=== PATIENT | male | born 1965 | race Caucasian/White ===

== ENCOUNTER 2017-08-18 15:10 | Day surgery (SDC) | payer BC ==
[~2017-08-18] VITALS: Ht 180.3 cm; Wt 91.6 kg
[2017-08-18] VITALS (8 sets, daily range): BP systolic 108–128; BP diastolic 70–103; PULSE 79–144; TEMP 98
[2017-08-18 15:59] LABS: INR 1.1 (0.8-3.0); PROTHROMBIN TIME 12.2 SECONDS (9.7-12.8)
[2017-08-18 16:14] LABS: POTASSIUM 4.3 mmol/L (3.4-5.0)
[2017-08-18 16:45] LABS: THYROID STIMULATING HORMONE 3.21 uIU/mL (0.465-4.680)
== END 2017-08-18 19:31 | disposition home or self-care (01) ==
LOC: COL.CARD 15:10
PROVIDERS: Internal Medicine Interventional Cardiology
DX: I48.3 Typical atrial flutter (principal); R06.02 Shortness of breath; C61 Malignant neoplasm of prostate; E03.9 Hypothyroidism, unspecified; Z80.9 Family history of malignant neoplasm, unspecified
CPT/HCPCS: G9654; J0282; J7030

== ENCOUNTER 2018-07-25 15:18 | Emergency (ER) | payer BC ==
[~2018-07-25] VITALS: Ht 180.3 cm; Wt 86.4 kg
[2018-07-25 15:57] LABS: BASO # 0.1 (0.0-0.2); BASO % 0.7 % (0.0-2.0); EOS # 0.2 (0.0-0.7); EOS % 2.3 % (0-4.0); GRAN # 4.9 (1.4-6.5); GRAN % 55.9 % (42.2-75.2); HEMATOCRIT 48.8 % (42.0-52.0); HEMOGLOBIN 16.8 g/dl (13.5-18.0); LYMPH # 2.7 (1.2-3.4); LYMPH % 30.5 % (20.0-51.0); MEAN CELL VOLUME 86 fl (80.0-100.0); MEAN CORPUSCULAR HEMOGLOBIN 30 pg (27.0-31.0); MEAN CORPUSCULAR HGB CONC 34 g/dl (33.0-37.0); MEAN PLATELET VOLUME 9.5 fl (7.4-10.4); MONO # 0.9 (0.1-0.6); PLATELET COUNT 326 K/mm3 (130-400); RED BLOOD COUNT 5.66 M/mm3 (4.20-5.60); REDCELL DISTRIBUTION WIDTH-CV 13.3 % (11.5-14.5)
[2018-07-25] MEDS ORDERED: LIPITOR20 MG PO (16:00)
[2018-07-25] MEDS ORDERED: SYNTHROID0.088 MG/T PO (16:00)
[2018-07-25] MEDS ORDERED: SYNTHROID0.075 MG/T PO (16:06)
[2018-07-25] MEDS ORDERED: LIPITOR 10MG10 MG PO (16:07)
[2018-07-25 16:10] LABS: ALANINE AMINOTRANSFERASE 58 U/L (21-72); ALBUMIN 4.7 gm/dL (3.5-5.0); ALKALINE PHOSPHATASE 110 U/L (50-136); ANION GAP 11 mmol/L (7-16); AST,SGOT 36 U/L (15-37); BILIRUBIN,TOTAL 0.8 mg/dL (0.0-1.0); BLOOD UREA NITROGEN 25 mg/dL (9-20); CALCIUM 9.7 mg/dL (8.4-10.2); CARBON DIOXIDE 25 mmol/L (22-30); CHLORIDE 104 mmol/L (98-107); CREATININE, serum 1.13 mg/dL (0.66-1.25); GLUCOSE 109 mg/dL (74-106); POTASSIUM 3.9 mmol/L (3.4-5.0); SODIUM 140 mmol/L (137-145); TOTAL PROTEIN 8.6 gm/dL (6.4-8.2)
[2018-07-25 16:24] LABS: TROPONIN-I < 0.012 ng/mL (0.000-0.035)
[2018-07-25] MEDS ORDERED: TOPROL XL 25MG25 MG PO (16:44)
[2018-07-25 16:45] VITALS: BP 115/91; PULSE 90
== END 2018-07-25 17:05 | disposition home or self-care (01) ==
LOC: COL.ER 15:18
PROVIDERS: Emergency Medicine
DX: I47.1 Supraventricular tachycardia (principal); E78.5 Hyperlipidemia, unspecified; E03.9 Hypothyroidism, unspecified; Z90.89 Acquired absence of other organs
CPT/HCPCS: J0153

== ENCOUNTER 2022-01-14 10:37 | Emergency (ER) | payer BC ==
[~2022-01-14] VITALS: Ht 180.3 cm; Wt 90.9 kg
[~2022-01-14 10:37] MED LIST: LIPITOR 10MG10 MG PO; LIPITOR20 MG PO; SYNTHROID0.075 MG/T PO; SYNTHROID0.088 MG/T PO; TOPROL XL 25MG25 MG PO
[2022-01-14 11:25] VITALS: TEMP 97.7
[2022-01-14 11:46] LABS: COLLECTION METHOD CATHETER
[2022-01-14 11:55] LABS: MUCOUS Present (NOT PRESENT); SQUAMOUS EPITHELIAL None Seen /hpf (0-10); URINE BACTERIA None Seen /hpf (NONE SEEN)
[2022-01-14 11:57] LABS: PH 5.5 (5.0-8.5); URINE APPEARANCE Clear (CLEAR/HAZY); URINE BLOOD TRACE-INTACT (NEGATIVE); URINE COLOR Yellow (YELLOW); URINE GLUCOSE Negative (NEGATIVE); URINE KETONE Negative (NEGATIVE); URINE PROTEIN(semi-quant) Negative (NEGATIVE); URINE UROBILINOGEN 0.2 E.U/dL (0.2-1.0)
[2022-01-14 11:58] LABS: URINE NITRATE Negative (NEGATIVE)
[2022-01-14 12:17] LABS: BASO # 0.1 K/mm3 (0.0-0.2); BASO % 0.6 % (0.0-2.0); EOS # 0.1 K/mm3 (0.0-0.7); EOS % 0.6 % (0.0-4.0); GRAN # 6.5 K/mm3 (1.4-6.5); GRAN % 80.2 % (42.2-75.2); HEMATOCRIT 43.2 % (42.0-52.0); HEMOGLOBIN 15.1 g/dl (13.5-18.0); LYMPH % 11.8 % (20.0-51.0); MEAN CELL VOLUME 87 fl (80.0-100.0); MEAN CORPUSCULAR HEMOGLOBIN 31 pg (27-31); MEAN CORPUSCULAR HGB CONC 35 g/dl (33.0-37.0); MEAN PLATELET VOLUME 9.4 fl (7.4-10.4); MONO # 0.5 K/mm3 (0.1-0.6); MONO % 6.3 % (1.7-9.3); PLATELET COUNT 276 K/mm3 (130-400); RED BLOOD COUNT 4.95 M/mm3 (4.20-5.60); REDCELL DISTRIBUTION WIDTH-CV 13.1 % (11.5-14.5)
[2022-01-14 12:33] LABS: ALBUMIN 4.1 gm/dL (3.5-5.0); BILIRUBIN,TOTAL 0.9 mg/dL (0.2-1.2); CALCIUM 9.4 mg/dL (8.4-10.2); CREATININE, serum 1.05 mg/dL (0.72-1.25); POTASSIUM 4.1 mmol/L (3.5-4.5); TOTAL PROTEIN 7.3 gm/dL (6.2-8.1)
[2022-01-14 14:16] VITALS: BP 153/102; PULSE 70
== END 2022-01-14 14:16 | disposition home or self-care (01) ==
LOC: COL.ER 10:37
PROVIDERS: Physician Assistant
DX: N40.1 Benign prostatic hyperplasia with lower urinary tract symptoms (principal); Z79.899 Other long term (current) drug therapy
CPT/HCPCS: Q9967

== ENCOUNTER 2022-06-25 06:22 | Day surgery (SDC) | payer BC ==
[~2022-06-25] VITALS: Ht 180.3 cm; Wt 90.1 kg
[2022-06-25 08:30] LABS: HEMOGLOBIN 14.6 g/dl (13.5-18.0)
[2022-06-25] MEDS ORDERED: TIROSINT100 MC1 PO (08:38)
[2022-06-25] MEDS ORDERED: TRICOR145 MG PO (08:39)
[2022-06-25] MEDS ORDERED: FLOMAX 0.40.4 MG/CAP PO (08:40)
[2022-06-25] MEDS ORDERED: TOPROL XL 50MG50 MG PO (08:40)
[2022-06-25] MEDS ORDERED: ASPIRIN 81M81 MG/TA2 PO (08:43)
[2022-06-25] MEDS ORDERED: OMEGA-3 1000 MG1 CAP PO (08:44)
[2022-06-25 08:45] VITALS: BP 137/94; PULSE 73; TEMP 97.9
[2022-06-25 08:46] LABS: CALCIUM 9.3 mg/dL (8.4-10.2); CREATININE, serum 1.24 mg/dL (0.72-1.25)
[2022-06-25] MEDS ORDERED: CIALIS5 MG PO (10:00)
[2022-06-25 13:20] VITALS: BP 132/82; PULSE 79; TEMP 97.6
[2022-06-25 15:54] VITALS: BP 126/73; PULSE 85; TEMP 98.4
[2022-06-25 19:13] VITALS: BP 137/76; PULSE 76; TEMP 98.1
--- NOTE | 2022-06-25 21:56 | NUR ---
SHIFT REPORT FROM SILVIA CHRISTIAN. PATIENT IN BED ON ROOM ENTRY. ALERT AND ORIENTED. HS MEDS PER EMAR. REFUSED TYLENOL. C/O PAIN 07/26 AND PRN CYNDI AND SCHEDULED TORADOOL GIVEN. ABD LAP SITES X5 CDI WITH GLUE. BRANDY DRAIN SITE CDI, OUTPUT IS BLOODY. TOLERATING MINIMAL PO INTAKE. ACOSTA TO DD WITH CLEAR PINK OUTPUT, PATIENT C/O THAT CATHETER IS POSITIONAL, APPLIED NEW DRAINAGE BAG IN ATTEMPT TO HELP DRAIN BETTER. IVF TO LFA WITHOUT ISSUE. REMAINS ON ROOM AIR. PATIENT DID WALK IN HALLS WITH SBA. DENIES ADDITIONAL NEEDS. CALL LIGHT IN REACH.
[2022-06-25 23:51] VITALS: BP 118/72; PULSE 82; TEMP 98.2
[2022-06-26 02:57] VITALS: BP 131/91; PULSE 82; TEMP 98
[2022-06-26 03:54] VITALS: BP 130/76; PULSE 94; TEMP 97.5
[2022-06-26 06:38] LABS: HEMATOCRIT 38.3 % (42.0-52.0)
[2022-06-26 06:45] LABS: HEMOGLOBIN 12.6 g/dl (13.5-18.0)
[2022-06-26 07:00] LABS: CALCIUM 9.1 mg/dL (8.4-10.2); CREATININE, serum 1.22 mg/dL (0.72-1.25)
--- NOTE | 2022-06-26 07:04 | NUR ---
Received shift report from the night nurse, Vanessa CHRISTIAN.
[2022-06-26 07:32] VITALS: BP 143/98; PULSE 102; TEMP 98
--- NOTE | 2022-06-26 08:07 | NUR ---
Patient sitting up in the recliner finishing up with breakfast. Patient consumed about 90% of breakfast. Patient denies episodes of n/v. Patient assisted back to bed for am assessment. 5lap sites in the abdomen dry and intact. Noted medium amount of old drainage on the BRANDY dressing. Patient has about 50cc of red drainage in the drain. Patient denies pain at this time. See process intervention for notes.
--- NOTE | 2022-06-26 08:44 | NUR ---
Dr. Hernandez was notified of Hgb level of 12.6.
--- NOTE | 2022-06-26 08:52 | NUR ---
Saline lock IV per orders. Patient up ambulating in the hallways with family member.
[2022-06-26 11:07] VITALS: BP 131/72; PULSE 82; TEMP 98
--- NOTE | 2022-06-26 15:38 | NUR ---
Discharge instruction given to patient , patient verbalized understanding and education given on care of soto catheter. Soto catheter supplies given to patient to take home. Emptied 850cc of urine from the soto bag. BRANDY drain discontinued per Dr. Hernandez's orders. Emptied scant amount of drainage from the drain. Patient tolerated procedure well. Escorted to patient entrance area via wheelchair accompanied by spouse.
== END 2022-06-26 15:40 | disposition home or self-care (01) ==
LOC: SDCO 06:22 → SURG 13:10 → SDCO 06-26 15:40
PROVIDERS: Nurse Anesthetist, Certified Registered; Urology
DX: C61 Malignant neoplasm of prostate (principal); N40.1 Benign prostatic hyperplasia with lower urinary tract symptoms; R33.8 Other retention of urine; Z87.891 Personal history of nicotine dependence
CPT/HCPCS: OP; A4314; A9284; J0690; J1100; J1885; J2270; J2405; J2704; J3010; J7120